=== PATIENT | female | born 1995 | race Caucasian/White ===

== ENCOUNTER → 2023-11-04 16:36 | Outpatient (REF) | payer OTHER, SELFPAY | LOC: REG 16:36 | PROVIDERS: ATTENDING PHYSICIAN Obstetrics & Gynecology | DX: Z34.03 Encounter for supervision of normal first pregnancy, third trimester (principal) | CPT/HCPCS: 36415; 86850; 86900; 86901; J2790 ==

== ENCOUNTER → 2024-01-29 16:28 | Outpatient (REF) | payer OTHER, SELFPAY | LOC: PNTC 16:28 | PROVIDERS: ATTENDING PHYSICIAN Obstetrics & Gynecology | DX: O48.0 Post-term pregnancy (principal) | CPT/HCPCS: 76815 ==

== ENCOUNTER 2024-02-02 19:14 | Inpatient (IN) | payer OTHER, SELFPAY ==
[2024-02-02 19:18] VITALS: BP 134/80; BMI 27.9
[2024-02-02 20:04] LABS: % Basophils 0.2 % (0-2); % Eosinophils 0.9 % (0-6); % Immature Granulocytes 0.4 % (0-0.5); % Lymphocytes 24.5 % (20.5-51.1); % Monocytes 6.2 % (1.7-9.3); % Neutrophils 67.8 % (42.2-75.2); Absolute Eosinophils 0.1 10^3/uL (0-0.7); Absolute Lymphocytes 2.5 10^3/uL (1.2-3.4); Absolute Monocytes 0.6 10^3/uL (0.1-0.6); Absolute Neutrophils 6.9 10^3/uL (1.4-6.5); Hematocrit 34.9 % (37.0-47.0); Mean Corp Hgb Conc. 37.2 g/dL (33.0-37.0); Mean Corpuscular Hgb 32.6 pg (27.0-31.0); Mean Corpuscular Volume 87.5 fL (81.0-99.0); Mean Platelet Volume 10.7 fL (7.4-10.4); Nucleated Red Blood Cells % 0 %; Platelet Count 167 10^3/uL (130-400); Red Blood Cell Count 3.99 10^6/uL (4.20-5.40); Red Cell Dist. Width 11.9 % (11.5-14.5); White Blood Cell Count 10.2 10^3/uL (4.8-10.8)
[2024-02-02] MEDS: CYTOTEC 50 MICROGRAM VAG (22:09)
[2024-02-03] MEDS: LR 1000 IV (02:04)
[2024-02-03] MEDS: SUBLIMAZE 100 MCG EPIDURAL (06:30)
[2024-02-03] MEDS: FENTANYL/BUPIVACAINE 100 EPIDURAL ×2 (06:31→13:55)
[2024-02-03] MEDS: PITOCIN 30 UNITS/NSS 500 ML IV (16:46)
[2024-02-03] MEDS: XYLOCAINE-MPF 1% VIAL 5 ML INFIL (17:06)
[2024-02-03] MEDS: TYLENOL 650 MG PO (22:49)
[2024-02-03] MEDS: MOTRIN 600 MG PO (22:50)
--- NOTE | 2024-02-04 03:03 | DOWNTIME ---
There was a [employer] Downtime on 02/04/2024 from 0100 to 02/04/2024 at 0300. Downtime documentation of patient's care, including medication administrations, has been reconciled in the electronic record per guidelines. Refer to the
patient's paper chart under the miscellaneous tab to see printed paper medication records and downtime forms.
[2024-02-04 04:51] LABS: Hematocrit 34.6 % (37.0-47.0); Hemoglobin 12.6 g/dL (12.0-16.0)
[2024-02-04] MEDS: MOTRIN 600 MG PO ×3 (05:06→17:54)
[2024-02-04] MEDS: TYLENOL 650 MG PO ×4 (05:06→17:54)
[2024-02-04] MEDS: PRENATAL PLUS 1 TABLET PO (08:29)
[2024-02-04] MEDS: RHOGAM 300 MCG IM (11:37)
[2024-02-05] MEDS: TYLENOL 650 MG PO ×2 (00:46→08:55)
[2024-02-05] MEDS: MOTRIN 600 MG PO ×2 (00:48→08:55)
[2024-02-05] MEDS: PRENATAL PLUS 1 TABLET PO (08:54)
[2024-02-06 11:52] LABS: Syphilis/T. pallidum Ab Reflex Negative (Negative)
== END 2024-02-05 13:43 | disposition home or self-care (01) | DRG 807 ==
LOC: LDRP 19:14
PROVIDERS: Obstetrics & Gynecology; ADMITTING PHYSICIAN Obstetrics & Gynecology; ATTENDING PHYSICIAN Student in an Organized Health Care Education/Training Program
PROC: 0UQMXZZ Repair Vulva, External Approach (ICD-10-PCS; 2024-02-03)
PROC: 0KQM0ZZ Repair Perineum Muscle, Open Approach (ICD-10-PCS; 2024-02-03)
PROC: 10E0XZZ Delivery of Products of Conception, External Approach (ICD-10-PCS; 2024-02-03)
DX: O77.0 Labor and delivery complicated by meconium in amniotic fluid (principal); Z37.0 Single live birth; O71.82 Other specified trauma to perineum and vulva; O70.1 Second degree perineal laceration during delivery; O99.73 Diseases of the skin and subcutaneous tissue complicating the puerperium; L30.9 Dermatitis, unspecified; Z3A.40 40 weeks gestation of pregnancy
CPT/HCPCS: 88307; 59025; 85014; 85018; 85025; 85461; 86780; 86850; 86900; 86901; J2790